=== PATIENT | female | born 1955 | race Caucasian/White ===

== ENCOUNTER → 2017-03-29 | Outpatient (CLI) | payer BC ==
[~2017-03-29] MED LIST: ATIVAN1 MG PO; PREMARIN1.25 MG PO; ZOLOFT100 MG PO; ZYRTEC10 M2 PO
== END | disposition home or self-care (01) ==
LOC: RAD 17:44
DX: M46.97 Unspecified inflammatory spondylopathy, lumbosacral region (principal); M51.36 Other intervertebral disc degeneration, lumbar region
CPT/HCPCS: 72070; 72114